=== PATIENT | female | born 1990 | race Caucasian/White ===

== ENCOUNTER 2017-02-25 18:35 | Emergency (ER) | payer SELFPAY ==
[~2017-02-25] VITALS: Ht 165.1 cm; Wt 72.6 kg
[~2017-02-25 18:35] MED LIST: AMOX1TAB61 PO; ARIP5TAB6 PO; CETI10TA22 PO; CIPR500T94 PO; CLON1TAB PO; DOXY100C14 PO; HYDR-2666 PO; HYDR-971 PO; HYDR15CR20 TP; HYDR50TA PO; ONDA4TAB7 PO; OXYC10TA PO; PERM60CR2 TP; TRAM50TA PO; TRAZ150T55 PO; VENL37.5 PO
[2017-02-25] MEDS ORDERED: IV NORMAL SALINE 1000ML BAG 1,000 ML IV SCH (19:39)
[2017-02-25] MEDS ORDERED: FAMOTIDINE 20 MG/2 ML VIAL IVP ONE (19:45)
[2017-02-25] MEDS ORDERED: ONDANSETRON PF 4 MG/2 ML VIAL. IV ONE (19:45)
[2017-02-25] MEDS ORDERED: FENTANYL PF 100 MCG/2 ML VIAL. IV PRN (19:45)
[2017-02-25 19:47] LABS: BASO % 0 % (0-3); EOS % 0 % (0-3); HEMATOCRIT 42.6 % (36.0-47.0); HEMOGLOBIN 14.4 g/dL (12.0-15.5); LYMPH # 2.4 x10^3/uL (1.0-4.8); LYMPH % 26 % (24-48); MEAN CORPUSCULAR HEMOGLOBIN 32 pg (25-35); MEAN CORPUSCULAR HGB CONC 34 g/dL (31-37); MEAN CORPUSCULAR VOLUME 96 fL (79-100); MONO % 9 % (0-9); NEUT % 65 % (31-73); PLATELET COUNT 303 x10^3/uL (140-400); RED BLOOD COUNT 4.46 x10^6/uL (3.50-5.40); RED CELL DISTRIBUTION WIDTH 13.3 % (11.5-14.5); WHITE BLOOD COUNT 9.3 x10^3/uL (4.0-11.0)
[2017-02-25 19:49] LABS: BILIRUBIN,URINE SMALL (NEG); GLUCOSE,URINE NEGATIVE (NEG); NITRITE,URINE NEGATIVE (NEG); PROTEIN,URINE 30 mg/dL (NEG-TRACE)
[2017-02-25 19:55] LABS: BACTERIA,URINE 0 /HPF (0-FEW); RBC,URINE 0 /HPF (0-2); SQUAMOUS EPITHELIAL CELL,UR MOD /LPF; WBC,URINE 20-40 /HPF (0-4)
[2017-02-25 19:55] LABS: CALCIUM 9.5 mg/dL (8.5-10.1); CREATININE 0.8 mg/dL (0.6-1.0); GFR 85.4; POTASSIUM 3.5 mmol/L (3.5-5.1)
[2017-02-25 20:02] LABS: ALBUMIN 4.1 g/dL (3.4-5.0); ALBUMIN/GLOBULIN RATIO 0.9 (1.0-1.7); TOTAL BILIRUBIN 0.5 mg/dL (0.2-1.0); TOTAL PROTEIN 8.6 g/dL (6.4-8.2)
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
[2017-02-25] MEDS ORDERED: LORAZEPAM 2 MG/ML VIAL. IV ONE (20:15)
[2017-02-25] MEDS ORDERED: CEFTRIAXONE 1GM IVPB FOR OMNI 50 ML IV ONE (20:15)
[2017-02-25 21:08] VITALS: BP 148/74
[2017-02-25] MEDS ORDERED: CEPH-264 PO (21:25)
--- NOTE | 2017-02-26 08:06 | RAD ---
Abdomen, 2 views, 02/25/2017: History: Abdominal pain Gas is present in large and small bowel in a nonspecific pattern. No free air is seen in the abdomen. There is no evidence of organomegaly. An IUD is projected over the pelvis in the midline. Lower pelvic calcifications are compatible with phleboliths. IMPRESSION: 1. An IUD is in place. 2. No acute abdominal abnormality is detected.
== END 2017-02-25 22:21 | disposition home or self-care (01) ==
LOC: ER 18:35
DX: N12 Tubulo-interstitial nephritis, not specified as acute or chronic (principal); F41.9 Anxiety disorder, unspecified; F32.9 Major depressive disorder, single episode, unspecified; F12.10 Cannabis abuse, uncomplicated; F15.10 Other stimulant abuse, uncomplicated; Z88.1 Allergy status to other antibiotic agents; Z91.011 Allergy to milk products; Z87.440 Personal history of urinary (tract) infections
CPT/HCPCS: 36415; 74020; 80053; 81001; 81025; 83690; 85027; 87086; 96361; 96365; 96366; 96375; 99285; J0690; J2060; J2405; J7030; S0028

== ENCOUNTER 2017-07-14 09:38 | Emergency (ER) | payer SELFPAY ==
[~2017-07-14] VITALS: Ht 165.1 cm; Wt 66.7 kg
[~2017-07-14 09:38] MED LIST changes: +ARIP5TAB13 PO; -ARIP5TAB6 PO; +CEPH-264 PO; -HYDR-2666 PO; +HYDR-2758 PO; +PERM60CR12 TP; -PERM60CR2 TP; +TRAZ150T49 PO; -TRAZ150T55 PO
--- NOTE | 2017-07-14 10:40 | PHYS DOC ---
Past Medical History Past Medical History: Anxiety, Depression, UTI Additional Past Medical Histor: back pain, endometriosis, scabies Past Surgical History: Other Additional Past Surgical Histo: RIGHT OVARIAN CYST REMOVAL Alcohol Use: None Drug Use: Marijuana, Methamphetamine Adult General Chief Complaint Chief Complaint: ABDOMINAL PAIN [facility] HPI Patient is a 26 year old female with history of anxiety, depression, urinary tract infections, who presents today complaining of mild to moderate intermittent left lower quadrant abdominal pain radiating to the right lower quadrant that began 5 months ago. Patient states she has a ParaGard for the last 5 years and is concerned this could be the source of her pain. She also states she has history of ovarian cysts. Patient is also concerned she could be have an STD and would like to be tested and treated. Patient is also complaining of a brownish vaginal discharge since this morning. Patient denies any urgency frequency dysuria nausea vomiting or fever. Review of Systems Review of Systems Constitutional: See history of present illness Eyes: Denies change in visual acuity, redness, or eye pain [] HENT: Denies nasal congestion or sore throat [] Respiratory: Denies cough or shortness of breath [] Cardiovascular: No additional information not addressed in HPI [] GI: Bilateral pelvic pain : See history of present illness Musculoskeletal: Denies back pain or joint pain [] Integument: Denies rash or skin lesions [] Neurologic: Denies headache, focal weakness or sensory changes [] Current Medications Current Medications Current Medications Medications (Trade) Dose Ordered Sig/Lorena Start Time Stop Time Status Last Admin Dose Admin Azithromycin (Zithromax) 1,000 mg 1X ONCE 07/14/17 10:45 07/14/17 10:46 DC 07/14/17 11:19 1,000 MG Ceftriaxone Sodium 50 ml @ 100 mls/hr 1X ONCE 07/14/17 10:45 07/14/17 11:14 DC 07/14/17 11:28 100 MLS/HR Info (Do NOT chart on this entry -- for MONITORING) 1 each PRN DAILY PRN 07/14/17 11:15 07/16/17 11:14 Iohexol (Omnipaque 300 Mg/ml) 75 ml 1X ONCE 07/14/17 11:00 07/14/17 11:06 DC 07/14/17 11:00 75 ML Ketorolac Tromethamine (Toradol) 30 mg 1X ONCE 07/14/17 10:45 07/14/17 10:47 DC 07/14/17 11:32 30 MG Metronidazole (Flagyl) 2,000 mg 1X ONCE 07/14/17 10:45 07/14/17 10:46 DC 07/14/17 11:20 2,000 MG Sodium Chloride 1,000 ml @ 1,000 mls/hr 1X ONCE 07/14/17 10:45 07/14/17 11:44 DC 07/14/17 11:28 1,000 MLS/HR Allergies Allergies Allergies Coded Allergies Type Severity Reaction Last Updated Verified erythromycin base Allergy Intermediate Unknown 07/14/17 Yes lactose Adverse Reaction Intermediate GAS 03/06/16 Yes Physical Exam Physical Exam Constitutional: Well developed, well nourished, no acute distress, non-toxic appearance. [] HENT: Normocephalic, atraumatic, bilateral external ears normal, oropharynx moist, no oral exudates, nose normal. [] Eyes: PERRLA, EOMI, conjunctiva normal, no discharge. [] Neck: Normal range of motion, no tenderness, supple, no stridor. [] Cardiovascular:Heart rate regular rhythm, no murmur [] Lungs & Thorax: Bilateral breath sounds clear to auscultation [] Abdomen: Bowel sounds normal, soft, mild left and right lower quadrant tenderness, negative [place] sign, negative obturator sign, negative psoas sign, no masses, no pulsatile masses. [] Pelvic exam External pelvic appears normal, cervix not well visualized, no CMT, mild left adnexal tenderness, small amount of brownish discharge in the vaginal vault consistent with spotting. Skin: Warm, dry, no erythema, no rash. [] Back: No tenderness, no CVA tenderness. [] Extremities: No tenderness, no cyanosis, no clubbing, ROM intact, no edema. [] Neurologic: Alert and oriented X 3, normal motor function, normal sensory function, no focal deficits noted. [] Psychologic: Affect normal, judgement normal, mood normal. [] Current Patient Data Vital Signs Vital Signs Date Time Temp Pulse Resp B/P (MAP) Pulse Ox O2 Delivery O2 Flow Rate FiO2 07/14/17 12:04 50 16 106/56 (73) 97 Room Air 07/14/17 10:18 98.5 98.5 Lab Values Laboratory Tests Test 07/14/17 09:20 07/14/17 10:09 07/14/17 11:25 POC Urine HCG, Qualitative Hcg negative (Negative) Urine Collection Type Void Urine Color Yellow Urine Clarity Clear Urine pH 5.5 Urine Specific [place] 1.020 Urine Protein Negative mg/dL (NEG-TRACE) Urine Glucose (UA) Negative mg/dL (NEG) Urine Ketones (Stick) Negative mg/dL (NEG) Urine Blood Large (NEG) Urine Nitrite Negative (NEG) Urine Bilirubin Negative (NEG) Urine Urobilinogen Dipstick 0.2 mg/dL (0.2 mg/dL) Urine Leukocyte Esterase Negative (NEG) Urine RBC 6-10 /HPF (0-2) Urine WBC 5-10 /HPF (0-4) Urine Squamous Epithelial Cells Mod /LPF Urine Amorphous Sediment Present /HPF Urine Bacteria Mod /HPF (0-FEW) Urine Mucus Marked /LPF Urine Opiates Screen Neg (NEG) Urine Methadone Screen Neg (NEG) Urine Barbiturates Neg (NEG) Urine Phencyclidine Screen Neg (NEG) Urine Amphetamine/Methamphetamine Pos (NEG) Urine Benzodiazepines Screen Pos (NEG) Urine Cocaine Screen Neg (NEG) Urine Cannabinoids Screen Pos (NEG) Urine Ethyl Alcohol Neg (NEG) White Blood Count 7.9 x10^3/uL (4.0-11.0) Red Blood Count 3.82 x10^6/uL (3.50-5.40) Hemoglobin 12.5 g/dL (12.0-15.5) Hematocrit 36.7 % (36.0-47.0) Mean Corpuscular Volume 96 fL (79-100) Mean Corpuscular Hemoglobin 33 pg (25-35) Mean Corpuscular Hemoglobin Concent 34 g/dL (31-37) Red Cell Distribution Width 13.1 % (11.5-14.5) Platelet Count 228 x10^3/uL (140-400) Neutrophils (%) (Auto) 58 % (31-73) Lymphocytes (%) (Auto) 31 % (24-48) Monocytes (%) (Auto) 9 % (0-9) Eosinophils (%) (Auto) 2 % (0-3) Basophils (%) (Auto) 0 % (0-3) Neutrophils # (Auto) 4.6 x10^3uL (1.8-7.7) Lymphocytes # (Auto) 2.4 x10^3/uL (1.0-4.8) Monocytes # (Auto) 0.7 x10^3/uL (0.0-1.1) Eosinophils # (Auto) 0.2 x10^3/uL (0.0-0.7) Basophils # (Auto) 0.0 x10^3/uL (0.0-0.2) Sodium Level 141 mmol/L (136-145) Potassium Level 3.8 mmol/L (3.5-5.1) Chloride Level 105 mmol/L (98-107) Carbon Dioxide Level 29 mmol/L (21-32) Anion Gap 7 (6-14) Blood Urea Nitrogen 9 mg/dL (7-20) Creatinine 0.7 mg/dL (0.6-1.0) Estimated GFR (Cockcroft-Gault) 99.6 BUN/Creatinine Ratio 13 (6-20) Glucose Level 114 mg/dL (70-99) H Calcium Level 8.9 mg/dL (8.5-10.1) Total Bilirubin 0.2 mg/dL (0.2-1.0) Aspartate Amino Transferase (AST) 10 U/L (15-37) L Alanine Aminotransferase (ALT) 14 U/L (14-59) Alkaline Phosphatase 70 U/L (46-116) Total Protein 6.4 g/dL (6.4-8.2) Albumin 3.1 g/dL (3.4-5.0) L Albumin/Globulin Ratio 0.9 (1.0-1.7) L Lipase 143 U/L (73-393) Ethyl Alcohol Level < 10 mg/dL (0-10) Laboratory Tests 07/14/17 11:25 Laboratory Tests 07/14/17 11:25 Microbiology 07/14/17 Wet Prep - Final, Complete EKG EKG [] Radiology/Procedures Radiology/Procedures [] Course & Med Decision Making Course & Med Decision Making Pertinent Labs and Imaging studies reviewed. (See chart for details) Patient is in the ED with complaints of bilateral pelvic pain for 5 months. She is also concerned for STDs and wanted to be tested and treated. She was given Rocephin Flagyl and azithromycin in the ED. Safe sex education provided especially the need to get the partners treated. CBC BMP patient's labs are negative for any acute findings, CT of the abdomen and pelvic was negative for any acute findings. Drug screen was noted for meth, marijuana, and benzodiazepines. Patient was discharged with instructions to follow-up with the PCP or Dr. Torres this week. Discharged in stable condition. Dragon Disclaimer Dragon Disclaimer This electronic medical record was generated, in whole or in part, using a voice recognition dictation system. Departure Departure Impression: Primary Impression: Concern about STD in female without diagnosis Additional Impression: Lower abdominal pain Disposition: HOME, SELF-CARE Condition: STABLE Referrals: NO PCP (PCP) ARIAN TORRES MD follow up next week Patient Instructions: Abdominal Pain Additional Instructions: You were seen for lower abdominal pain and concern for STDs. You were treated prophylaxis for STDs in the ED. Please follow-up with Dr. Torres in the next 1 week. Take the prescribed pain medicine as needed. Come back to the ED at any point symptoms worsen. Ensure you contact your sex partners, let them know you were treated for STDs and ask them to seek treatment too. Use protection at all times Scripts Tramadol Hcl (ULTRAM) 50 Mg Tablet 1 TAB PO Q6HRS, #20 TAB Prov: RAE PRIETO APRN 07/14/17 Problem Qualifiers RAE PRIETO APRN Jul 14, 2017 10:40
[2017-07-14] MEDS ORDERED: AZITHROMYCIN 250 MG TABLET. PO ONE (10:45)
[2017-07-14] MEDS ORDERED: IV NORMAL SALINE 1000ML BAG 1,000 ML IV ONE (10:45)
[2017-07-14] MEDS ORDERED: metroNIDAZOLE 500 MG TABLET PO ONE (10:45)
[2017-07-14] MEDS ORDERED: KETOROLAC TROMETHAMINE 30 MG/ML INJ. IV ONE (10:45)
[2017-07-14 10:54] LABS: BILIRUBIN,URINE NEGATIVE (NEG); GLUCOSE,URINE NEGATIVE (NEG); NITRITE,URINE NEGATIVE (NEG); PH,URINE 5.5; PROTEIN,URINE NEGATIVE (NEG-TRACE); UROBILINOGEN,URINE 0.2 mg/dL (0.2 mg/dL)
[2017-07-14 11:00] LABS: BARBITURATES NEG (NEG); BENZODIAZEPINES POS (NEG); CANNABINOIDS POS (NEG); COCAINE NEG (NEG); METHADONE NEG (NEG); OPIATES NEG (NEG); PHENCYCLIDINE NEG (NEG); SQUAMOUS EPITHELIAL CELL,UR MOD /LPF
[2017-07-14] MEDS ORDERED: IOHEXOL 300 MG/ML 75 ML VIAL IV ONE (11:00)
[2017-07-14 11:01] LABS: BACTERIA,URINE MOD /HPF (0-FEW)
[2017-07-14] MEDS ORDERED: CONTRAST GIVEN MC PRN (11:15)
[2017-07-14 11:50] LABS: BASO % 0 % (0-3); EOS % 2 % (0-3); HEMATOCRIT 36.7 % (36.0-47.0); HEMOGLOBIN 12.5 g/dL (12.0-15.5); LYMPH # 2.4 x10^3/uL (1.0-4.8); LYMPH % 31 % (24-48); MEAN CORPUSCULAR HEMOGLOBIN 33 pg (25-35); MEAN CORPUSCULAR HGB CONC 34 g/dL (31-37); MEAN CORPUSCULAR VOLUME 96 fL (79-100); MONO % 9 % (0-9); NEUT % 58 % (31-73); PLATELET COUNT 228 x10^3/uL (140-400); RED BLOOD COUNT 3.82 x10^6/uL (3.50-5.40); RED CELL DISTRIBUTION WIDTH 13.1 % (11.5-14.5); WHITE BLOOD COUNT 7.9 x10^3/uL (4.0-11.0)
[2017-07-14 12:04] VITALS: BP 106/56
[2017-07-14 12:10] LABS: CALCIUM 8.9 mg/dL (8.5-10.1); CREATININE 0.7 mg/dL (0.6-1.0); GFR 99.6; POTASSIUM 3.8 mmol/L (3.5-5.1)
[2017-07-14 12:16] LABS: ALBUMIN 3.1 g/dL (3.4-5.0); ALBUMIN/GLOBULIN RATIO 0.9 (1.0-1.7); TOTAL BILIRUBIN 0.2 mg/dL (0.2-1.0); TOTAL PROTEIN 6.4 g/dL (6.4-8.2)
--- NOTE | 2017-07-14 12:50 | RAD ---
Examination: CT of the abdomen pelvis with IV contrast History: History of right lower quadrant abdominal pain Comparison: 10/15/2016 Technique: Axial CT images of the abdomen pelvis was performed with IV contrast. Coronal and sagittal reformats were performed. PQRS Compliance Statement: One or more of the following individualized dose reduction techniques were utilized for this examination: 1. Automated exposure control 2. Adjustment of the mA and/or kV according to patient size 3. Use of iterative reconstruction technique Findings: Minimal bibasal lung atelectasis. No evidence of free air identified in the abdomen. The visualized liver, spleen, adrenals grossly appears unremarkable. The gallbladder is minimally distended. The stomach is mildly distended. The visualized pancreas grossly appears unremarkable. The small bowel is nondilated. Appendix is normal. Feces and gas noted in the colon. The urinary bladder is mildly distended. Intrauterine contraceptive device is identified. The bilateral kidneys enhance symmetrically. No evidence of hydronephrosis. Tiny subcentimeter cystic structure identified in the left kidney probably cyst. The caliber of the aorta grossly appears unremarkable. No evidence of lytic bony destructive lesion. Impression: 1. No acute intra-abdominal findings. 2. Minimal bibasal lung atelectasis.
[2017-07-14] MEDS ORDERED: TRAM-48 PO (13:10)
== END 2017-07-14 13:27 | disposition home or self-care (01) ==
LOC: ER 09:38
DX: Z11.3 Encounter for screening for infections with a predominantly sexual mode of transmission (principal); R10.32 Left lower quadrant pain; R10.31 Right lower quadrant pain; N89.8 Other specified noninflammatory disorders of vagina; F41.9 Anxiety disorder, unspecified; F32.9 Major depressive disorder, single episode, unspecified; Z87.440 Personal history of urinary (tract) infections; Z88.1 Allergy status to other antibiotic agents; Z91.011 Allergy to milk products
CPT/HCPCS: 36415; 74177; 80053; 80307; 81001; 81025; 83690; 85025; 87491; 87591; 96365; 96375; 99285; G0480; J0690; J1885; J7030; Q0111; Q0144; Q9967; G0479

== ENCOUNTER 2017-08-21 19:17 | Emergency (ER) | payer SELFPAY ==
[~2017-08-21] VITALS: Ht 165.1 cm; Wt 68.0 kg
[~2017-08-21 19:17] MED LIST changes: +TRAM-48 PO
[2017-08-21 19:28] VITALS: BP 140/94
[2017-08-21] MEDS ORDERED: NAPR500T PO (19:42)
[2017-08-21] MEDS ORDERED: PENI500T PO (19:42)
--- NOTE | 2017-08-21 19:43 | PHYS DOC ---
Past Medical History Past Medical History: Anxiety, Depression, UTI Additional Past Medical Histor: back pain, endometriosis, scabies Past Surgical History: Other Additional Past Surgical Histo: RIGHT OVARIAN CYST REMOVAL Smoking: Greater than 1 pack/day Alcohol Use: None Drug Use: Marijuana, Methamphetamine Adult General Chief Complaint Chief Complaint: DENTAL PROBLEM HPI HPI Patient is a 26 year old female presents to the emergency department with left upper dental pain. Patient states she has chronic dental pain but has been unable to follow-up with the dentist that she has no money and no dental insurance. Patient by her own admission uses tobacco, methamphetamine and opiates. Review of Systems Review of Systems Constitutional: Denies fever or chills [] Eyes: Denies change in visual acuity, redness, or eye pain [] HENT: Denies nasal congestion or sore throat, dental pain [] Respiratory: Denies cough or shortness of breath [] Cardiovascular: No additional information not addressed in HPI [] GI: Denies abdominal pain, nausea, vomiting, bloody stools or diarrhea [] : Denies dysuria or hematuria [] Musculoskeletal: Denies back pain or joint pain [] Integument: Denies rash or skin lesions [] Neurologic: Denies headache, focal weakness or sensory changes [] Endocrine: Denies polyuria or polydipsia [] Allergies Allergies Allergies Coded Allergies Type Severity Reaction Last Updated Verified erythromycin base Allergy Intermediate Unknown 07/14/17 Yes lactose Adverse Reaction Intermediate GAS 03/06/16 Yes Physical Exam Physical Exam Constitutional: Well developed, well nourished, no acute distress, non-toxic appearance. [] HENT: Normocephalic, atraumatic, bilateral external ears normal, oropharynx moist left upper, tooth #2, with caries, surrounding gingiva with erythema. The tooth is tender to palpate., no oral exudates, nose normal. [] Eyes: PERRLA, EOMI, conjunctiva normal, no discharge. [] Neck: Normal range of motion, no tenderness, supple without lymphadenopathy, no stridor. [] Cardiovascular:Heart rate regular rhythm, no murmur [] Lungs & Thorax: Bilateral breath sounds clear to auscultation [] Abdomen: Bowel sounds normal, soft, no tenderness, no masses, no pulsatile masses. [] Skin: Warm, dry, no erythema, no rash. [] Back: No tenderness, no CVA tenderness. [] Extremities: No tenderness, no cyanosis, no clubbing, ROM intact, no edema. [] Neurologic: Alert and oriented X 3, normal motor function, normal sensory function, no focal deficits noted. [] Psychologic: Affect normal, judgement normal, mood normal. [] EKG EKG [] Radiology/Procedures Radiology/Procedures [] Course & Med Decision Making Course & Med Decision Making Pertinent Labs and Imaging studies reviewed. (See chart for details) [] Dragon Disclaimer Dragon Disclaimer This electronic medical record was generated, in whole or in part, using a voice recognition dictation system. Departure Departure Impression: Primary Impression: Dental abscess Disposition: HOME, SELF-CARE Condition: STABLE Referrals: NO PCP (PCP) [facility] [place] Patient Instructions: Dental Abscess Scripts Penicillin V Potassium (PENICILLIN V POTASSIUM) 500 Mg Tablet 1 TAB PO QID, #40 TAB Prov: MOHIT FRANCISCO APRN 08/21/17 Naproxen (NAPROSYN) 500 Mg Tablet 500 MG PO BID Y for PAIN, #20 TAB Prov: MOHIT FRANCISCO APRN 08/21/17 MOHIT FRANCISCO APRN Aug 21, 2017 19:43
[2017-08-21] MEDS ORDERED: KETOROLAC 60 MG/2 ML INJ. IM ONE (19:45)
== END 2017-08-21 20:07 | disposition home or self-care (01) ==
LOC: ER 19:17
DX: K04.7 Periapical abscess without sinus (principal); K02.9 Dental caries, unspecified; G89.29 Other chronic pain; F41.9 Anxiety disorder, unspecified; F32.9 Major depressive disorder, single episode, unspecified; F17.200 Nicotine dependence, unspecified, uncomplicated; Z88.1 Allergy status to other antibiotic agents; Z91.011 Allergy to milk products
CPT/HCPCS: 96372; 99283; J1885